=== PATIENT | female | born 1990 | race Two or more races ===

== ENCOUNTER 2019-05-29 18:40 | Emergency (ER) | payer OTHER ==
[~2019-05-29] VITALS: Ht 152.4 cm; Wt 71.2 kg
[2019-05-29 19:38] LABS: Urine Bacteria NONE SEEN /hpf (None Seen); Urine Blood 1+ /uL (Negative); Urine Mucus FEW (None Seen); Urine Specific Gravity 1.026 (1.001-1.035); Urine WBC 1 /hpf (0 - 5)
[2019-05-29] MEDS ORDERED: PROMETHAZINE HCL 25 MG/ML 1ML IM ONE (22:00)
[2019-05-29 22:24] VITALS: BP 123/68
[2019-05-29] MEDS ORDERED: ACETAMINOPHEN 500 MG TAB PO ONE (23:45)
== END 2019-05-30 00:14 | disposition home or self-care (01) ==
LOC: ER 18:46
DX: O20.0 Threatened abortion (principal); Z3A.01 Less than 8 weeks gestation of pregnancy
CPT/HCPCS: 36415; 76801; 81001; 84702; 96372; 99284; J2550

== ENCOUNTER 2021-08-21 17:19 | Emergency (ER) | payer OTHER ==
[~2021-08-21] VITALS: Ht 152.4 cm; Wt 71.2 kg
[2021-08-21 17:22] VITALS: BP 119/72
== END 2021-08-21 19:28 | disposition left against medical advice (07) ==
LOC: ER 17:19
DX: R10.13 Epigastric pain (principal); M54.9 Dorsalgia, unspecified; Z53.29 Procedure and treatment not carried out because of patient's decision for other reasons

== ENCOUNTER 2021-10-10 09:38 | Emergency (ER) | payer OTHER ==
[~2021-10-10] VITALS: Ht 152.4 cm; Wt 73.9 kg
[2021-10-10 10:46] LABS: Basophils # (auto) 0.1 10 ^3/uL (0-0.2); Basophils % (auto) 0.5 % (0.0-2.0); Eosinophils # (auto) 0.3 10 ^3/uL (0-0.8); Eosinophils % (auto) 3.1 % (0.0-7.0); Hematocrit 39.2 % (36.0-46.0); Hemoglobin 12.9 g/dL (12.2-16.2); Lymphocytes # (auto) 2.5 10 ^3/uL (0.4-5.4); Lymphocytes % (auto) 23.2 % (10.0-50.0); Mean Corpuscular Hemoglobin 28.2 pg (28.0-32.0); Mean Corpuscular Volume 85.6 fL (80.0-100.0); Monocytes # (auto) 0.5 10 ^3/uL (0-1.3); Neutrophils # (auto) 7.3 10 ^3/uL (1.6-8.6); Neutrophils % (auto) 68.2 % (37.0-80.0); Red Blood Cells 4.58 10^6/uL (4.0-5.20); Red Cell Distribution Width 14.3 % (11.8-14.3); White Blood Cell 10.7 10^3/uL (4.4-10.8)
[2021-10-10 11:02] LABS: Albumin 3.5 g/dL (3.4-5.0); BUN/Creatinine Ratio 11.1; Calcium 9.1 mg/dL (8.5-10.1); Magnesium 2.2 mg/dL (1.6-2.6); Potassium 3.9 mmol/L (3.5-5.1)
[2021-10-10 11:07] LABS: Bilirubin, Total 0.4 mg/dL (0.2-1.0); Total Protein 7.9 g/dL (6.4-8.2)
[2021-10-10 15:45] VITALS: BP 126/92
== END 2021-10-10 16:14 | disposition home or self-care (01) ==
LOC: ER 09:38
DX: M94.0 Chondrocostal junction syndrome [Tietze] (principal)
CPT/HCPCS: 36415; 71045; 80053; 83735; 83880; 84484; 85025; 85379; 93005